=== PATIENT | female | born 1930 ===

== ENCOUNTER 2017-08-27 13:38 | Emergency (ER) | payer MEDICARE, BC ==
[2017-08-27 14:08] VITALS: BP 135/46
--- NOTE | 2017-08-27 14:13 | UC ---
Skin Complaint HPI - HPI Summary HPI Summary: 86 y/o female presents to the urgent care accompany by friend c/o a skin puncture wound s/p cut w/ lise basket wire about 2 weeks ago. Pt reports she lives in [place] and is here visiting her friend. Puncture wound got infected and her PCP Rx Doxycyline PO for 10 days. She finished ABx and wound was healing until this morning when she noticed it was getting red around and w/ some drainage. Pt states pain is 2/10 at touch. Pt denies fever, calf pain, SOB , chest pain, abdominal, N/V/D. - History of Current Complaint Hx Obtained From: Patient Onset/Duration: Sudden Onset, Lasting Weeks - 3 weeks, Still Present, Worse Since - 2 days Skin Exposure Onset/Duration: Weeks Ago - 3 weeks, Worse Since: - 2 days ago Timing: Constant Onset Severity: Moderate Current Severity: Mild Pain Intensity: 2 Pain Scale Used: 0-10 Numeric Location: Discrete - RT lower leg infected wound s/p puncture w/ a wire bascket Character: Redness, Painful Aggravating Factor(s): OTC Meds, Touch Alleviating Factor(s): OTC Meds, OTC Creams/Salves Associated Signs & Symptoms: Positive: Rash, Drainage - yellowish, Tenderness. Negative: Fever, Chills Related History: Other: - puncture wound w/ a wire bascket <Leia Mullins - Last Filed: 08/28/17 00:28> <Luis Manuel Holguin - Last Filed: 08/28/17 07:12> - History of Current Complaint Chief Complaint: [facility] Time Seen by Provider: 08/27/17 14:11 Stated Complaint: LOWER LEG COMPLAINT - Allergy/Home Medications Allergies/Adverse Reactions: Allergies Allergy/AdvReac Type Severity Reaction Status Date / Time No Known Allergies Allergy Verified 08/27/17 13:57 Home Medications: Home Medications "Blood Supplement" 1 tab PO DAILY 08/27/17 [History] Aspirin [Aspirin EC] 81 mg PO DAILY 08/27/17 [History Confirmed 08/27/17] Biotin [Ultra Biotin] 5 mg PO DAILY 08/27/17 [History Confirmed 08/27/17] Carvedilol [Coreg] 12.5 mg PO BID 08/27/17 [History Confirmed 08/27/17] Cinnamon Bark [Cinnamon] 1,000 mg PO DAILY 08/27/17 [History Confirmed 08/27/17] Hydrochlorothiazide TAB* [Hydrodiuril TAB*] 25 mg PO DAILY 08/27/17 [History Confirmed 08/27/17] Iron Ps Complex/B12/Folic Acid [Poly-Iron 150 Forte] 1 cap PO DAILY 08/27/17 [ History Confirmed 08/27/17] Levothyroxine Sodium 112 mcg PO DAILY 08/27/17 [History Confirmed 08/27/17] Losartan Potassium [Cozaar] 50 mg PO DAILY 08/27/17 [History Confirmed 08/27/17] Jefferson-3 Fatty Acids/Fish Oil [Jefferson 3] 1 cap PO DAILY 08/27/17 [History Confirmed 08/27/17] Simvastatin TAB(NF) [Zocor(NF)] 10 mg PO 1700 08/27/17 [History Confirmed ] raNITIdine HCl [Ranitidine HCl] 150 mg PO BID 08/27/17 [History Confirmed ] Review of Systems Constitutional: Negative Skin: Other - puncture infected wound w/ redness around and some drainage, not healing despite antibiotics Eyes: Negative ENT: Negative Respiratory: Negative Cardiovascular: Negative Gastrointestinal: Negative Genitourinary: Negative Motor: Negative Neurovascular: Negative Musculoskeletal: Negative Neurological: Negative Psychological: Negative Is Patient Immunocompromised?: No All Other Systems Reviewed And Are Negative: Yes <Leia Mullins - Last Filed: 08/28/17 00:28> PMH/Surg Hx/FS Hx/Imm Hx Previously Healthy: Yes Endocrine History: Hypothyroidism, Dyslipidemia Cardiovascular History: Cardiac Disease, Hypertension GI/ History: Gastroesophageal Reflux - Surgical History Surgical History: Yes Surgery Procedure, Year, and Place: bilateral knee replacement. back surgery. hysterectomy. tonsillectomy - Social History Alcohol Use: Occasionally Substance Use Type: None Smoking Status (MU): Never Smoked Tobacco - Immunization History Most Recent Tetanus Shot: 03/2017 <Leia Mullins - Last Filed: 08/28/17 00:28> Physical Exam - Summary Physical Exam Summary: Vital Signs Reviewed: Yes General: well developed, well nourished old female sitting in the examining table w/o any apparent distress. Eyes: Positive: Conjunctiva Clear - PERRLA, EOMI ENT: Positive: Normal ENT inspection, Hearing grossly normal, Pharynx normal, TMs normal Neck: Positive: Supple, Nontender, No Lymphadenopathy Respiratory: Positive: Chest nontender, Lungs clear, Normal breath sounds Cardiovascular: Positive: RRR, No Murmur, Pulses Normal Abdomen Description: Positive: Nontender, No Organomegaly, Soft. Negative: CVA Tenderness (R), CVA Tenderness (L) Bowel Sounds: Positive: Present Musculoskeletal: Positive: Strength Intact, ROM Intact, No Edema Neurological Exam: Normal Psychological Exam: Normal Skin: Positive: rashes - Lateral side of distal RT lower leg w/ and infected wound w/ surrounding erythematous patch w/ indistinct borders, warm to touch, no swelling and mild tenderness to palpation. Triage Information Reviewed: Yes Vital Signs: Initial Vital Signs Temp 98.6 F 08/27/17 13:59 Pulse 54 08/27/17 13:59 Resp 18 08/27/17 13:59 BP 135/46 08/27/17 13:59 Pulse Ox 97 08/27/17 13:59 <Leia Mullins - Last Filed: 08/28/17 00:28> Vital Signs: Initial Vital Signs Temp 98.6 F 08/27/17 13:59 Pulse 54 08/27/17 13:59 Resp 18 08/27/17 13:59 BP 135/46 08/27/17 13:59 Pulse Ox 97 08/27/17 13:59 <Luis Manuel Holguin - Last Filed: 08/28/17 07:12> Course/Dx - Course Course Of Treatment: 86 y/o female presents to the urgent care accompany by friend c/o a skin puncture wound s/p cut w/ lise basket wire about 2 weeks ago. Pt reports she lives in [place] and is here visiting her friend. Puncture wound got infected and her PCP Rx Doxycyline PO for 10 days. She finished ABx and wound was healing until this morning when she noticed it was getting red around and w/ some drainage. Pt states pain is 2/10 at touch. Pt denies fever, calf pain, SOB, chest pain, abdominal, N/V/D.Hx obtained.Pt w/ RT lower leg cellulitis s/p puncture wound on examination. sample take form wound and sent to lab to r/o any abdnomality. pt will be notified of results. Pt's wound cleaned and Bacitracin oint applied over and covered w/ sterile dressing. Pt Rx Keflex PO and topical Bacitracin. rash demarcated with a skin marker and Advised if rash doubles in size and if she develops fever to go to the ER for further treatment. D/C instructions explained. Pt understood and agreed and left clinic hemodynamically stable A&OX3. - Differential Diagnoses - Skin Complaint Differential Diagnoses: Abscess, Cellulitis, Lymphadenitis, MRSA, Other - wound infection - Diagnoses Provider Diagnoses: 1- RT lower leg Cellulitis. 2- Infected wound <Leia Mullins - Last Filed: 08/28/17 00:28> Discharge - Sign-Out/Discharge Documenting (check all that apply): Discharge/Admit/Transfer - D/C home - Billing Disposition and Condition Condition: STABLE Disposition: Home <Leia Mullins - Last Filed: 08/28/17 00:28> - Billing Disposition and Condition Condition: STABLE Disposition: Home <Luis Manuel Holguin - Last Filed: 08/28/17 07:12> - Discharge Plan Condition: Stable Disposition: HOME Prescriptions: Acetaminophen TAB* [Tylenol TAB*] 650 mg PO Q6H PRN #20 tab PRN Reason: Pain Clindamycin Cap(NF) [Clindamycin Cap 300 mg Cap(NF)] 300 mg PO TID #30 cap Patient Education Materials: Wound Infection (ED), Cellulitis (ED) Referrals: [facility] [place] [facility] [Outside] - 3 Days Additional Instructions: 1-Please take full course of Antibiotic. Take Tylenol PO q6-8hrs prn for pain and swelling. Please take probiotics to protec your GI system while taking the antibiotic. 2- If redness and swelling doubles in size after 48 hrs of taking antibiotic and fever develops please go to the ER immediately. 3-Avoid standing for long periods of time or flexing your foot, keep it elevated and keep wound clean and dry. 4-Please F/u with your PCP in [place] as soon as your get there for further evaluation and treatment. 5- Wound culture sent to lab to r/o any abnormality. Your will be notified of the results Per institutional requirements, I have reviewed the chart, however, I was not consulted specifically or made aware of this patient by the above midlevel provider. I did not personally evaluate, interact with , or disposition this patient.
--- NOTE | 2017-08-28 13:18 | UC ---
- Progress Note Progress Note: preliminary report available her antibiotic might need to be changed as it is likely that her psuedomonas will be resistant to clinda will await final culture results Discharge - Sign-Out/Discharge Documenting (check all that apply): Post-Discharge Follow Up - Discharge Plan Condition: Stable Disposition: HOME Prescriptions: Acetaminophen TAB* [Tylenol TAB*] 650 mg PO Q6H PRN #20 tab PRN Reason: Pain Clindamycin Cap(NF) [Clindamycin Cap 300 mg Cap(NF)] 300 mg PO TID #30 cap Patient Education Materials: Wound Infection (ED), Cellulitis (ED) Referrals: [facility] [place] [facility] [Outside] - 3 Days Additional Instructions: 1-Please take full course of Antibiotic. Take Tylenol PO q6-8hrs prn for pain and swelling. Please take probiotics to protec your GI system while taking the antibiotic. 2- If redness and swelling doubles in size after 48 hrs of taking antibiotic and fever develops please go to the ER immediately. 3-Avoid standing for long periods of time or flexing your foot, keep it elevated and keep wound clean and dry. 4-Please F/u with your PCP in [place] as soon as your get there for further evaluation and treatment. 5- Wound culture sent to lab to r/o any abnormality. Your will be notified of the results Per institutional requirements, I have reviewed the chart, however, I was not consulted specifically or made aware of this patient by the above midlevel provider. I did not personally evaluate, interact with , or disposition this patient. - Billing Disposition and Condition Condition: STABLE Disposition: Home
== END 2017-08-27 15:23 | disposition home or self-care (01) ==
LOC: UCEAST 13:38
DX: L03.115 Cellulitis of right lower limb (principal); S81.831A Puncture wound without foreign body, right lower leg, initial encounter; Z96.653 Presence of artificial knee joint, bilateral; W22.09XA Striking against other stationary object, initial encounter; Y92.9 Unspecified place or not applicable
CPT/HCPCS: 87070; 87077; 87186; 87205; 87640; 87641; 99202; G0463